=== PATIENT | female | born 1980 | race Caucasian/White ===

== ENCOUNTER → 2017-03-25 | Outpatient (CLI) | payer MEDICAID ==
[~2017-03-25] MED LIST: ALBUTEROL2.5 MG/0.5 INH; CEPHALEXIN125 MG/5 M; DAYQUIL; MYCOSTATIN(NYST15 GM TOP; PHENERGAN WITH15 ML PO; TYLENOL325 MG PO; ZITHROMAX250 MG PO
== END | disposition disaster alternative care site (69) ==
LOC: GRAD 08:09
DX: R10.9 Unspecified abdominal pain (principal); K76.0 Fatty (change of) liver, not elsewhere classified

== ENCOUNTER → 2017-04-06 | Outpatient (CLI) | payer MEDICAID | END | disposition disaster alternative care site (69) | LOC: GRAD 10:23 | DX: R10.11 Right upper quadrant pain (principal) | CPT/HCPCS: A9537 ==